=== PATIENT | female | born 1975 | race Caucasian/White ===

== ENCOUNTER 2022-07-27 15:45 | Outpatient (CLI) | payer OTHER, SELFPAY | END 2022-07-27 15:46 | disposition home or self-care (01) | PROVIDERS: PCP Family Medicine; Visit Provider Family Medicine | DX: E78.00 Pure hypercholesterolemia, unspecified (principal); R60.9 Edema, unspecified | CPT/HCPCS: 80053; 80061 ==

== ENCOUNTER 2023-08-17 11:17 | Outpatient (CLI) | payer OTHER, SELFPAY | END 2023-08-17 11:18 | disposition home or self-care (01) | PROVIDERS: PCP Family Medicine; Visit Provider Family Medicine | DX: E78.00 Pure hypercholesterolemia, unspecified (principal); G25.81 Restless legs syndrome; M79.18 Myalgia, other site; E66.9 Obesity, unspecified; F41.8 Other specified anxiety disorders; J45.909 Unspecified asthma, uncomplicated | CPT/HCPCS: 80053; 80061; 84443 ==